=== PATIENT | female | born 1985 | race Caucasian/White ===

== ENCOUNTER 2016-07-01 23:50 | Emergency (ER) | payer SELFPAY ==
[~2016-07-01] VITALS: Ht 162.6 cm; Wt 77.1 kg
[~2016-07-01 23:50] MED LIST: AMOXICILLIN 8751 TAB PO; CEFTIN 250250 MG/TAB PO; LEVAQUIN 750MG750 M1 PO; LODINE300 MG PO; LORTAB 5/500 501 TAB PO; MACRODANTIN50 MG PO; MIRENA52 MG IU; MOTRIN 600600 MG/TAB PO; NORCO 325 MG-51 TAB PO; OMNICEF 300MG300 MG PO; ORTHO TRI-CYCLE1 TAB PO; PEPCID 20MG TAB20 MG PO; PERCOCET 325 MG1 TA2 PO; PHENERGAN 25 TA25 MG PO; PHENERGAN25 MG RC; PREDNISONE20 MG PO; PRENATAL VITAMI1 TA5 PO; PRENATAL1 TA3 PO; PROAIR HFA0.09 MG/AC IH; SENOKOT8.6 MG PO; TUSS PO; TYLENOL 500MG500 MG PO; ZOFRAN 4MG T4 MG/TAB PO; ZOFRAN ODT4 MG PO; ZOLOFT 50MG50 MG PO; [UNRECOGNIZED DRUG - OTHER]
[2016-07-01 23:54] VITALS: TEMP 97.9
[2016-07-02] MEDS ORDERED: FLEXERIL 1010 MG/TAB PO (01:45)
[2016-07-02 02:20] VITALS: BP 116/50; PULSE 90
== END 2016-07-02 02:21 | disposition home or self-care (01) ==
LOC: COL.ER 23:50
DX: M54.32 Sciatica, left side (principal)
CPT/HCPCS: J1885

== ENCOUNTER 2017-08-18 13:57 | Emergency (ER) | payer SELFPAY ==
[~2017-08-18] VITALS: Ht 162.6 cm; Wt 86.1 kg
[~2017-08-18 13:57] MED LIST changes: +FLEXERIL 1010 MG/TAB PO
[2017-08-18 14:02] VITALS: BP 108/65; TEMP 99.3
[2017-08-18] MEDS ORDERED: NORCO 325 MG-51 TAB PO (15:54)
[2017-08-18] MEDS ORDERED: FLEXERIL 1010 MG/TAB PO (15:54)
[2017-08-18 15:59] VITALS: PULSE 101
== END 2017-08-18 16:00 | disposition home or self-care (01) ==
LOC: COL.ER 13:57
DX: M54.5 Low back pain (principal); M51.36 Other intervertebral disc degeneration, lumbar region; F17.210 Nicotine dependence, cigarettes, uncomplicated; Z87.59 Personal history of other complications of pregnancy, childbirth and the puerperium; Z88.1 Allergy status to other antibiotic agents; Z90.49 Acquired absence of other specified parts of digestive tract; Z98.890 Other specified postprocedural states; X50.0XXA Overexertion from strenuous movement or load, initial encounter
CPT/HCPCS: J1885; J2360

== ENCOUNTER 2017-11-01 08:43 | Emergency (ER) | payer SELFPAY ==
[~2017-11-01] VITALS: Ht 160 cm; Wt 86.4 kg
[2017-11-01 09:19] LABS: BASO % 0.4 % (0.0-2.0); EOS # 0.3 (0.0-0.7); EOS % 2.9 % (0-4.0); GRAN # 6.1 (1.4-6.5); GRAN % 62.4 % (42.2-75.2); HEMOGLOBIN 14.1 g/dl (12.5-16.0); LYMPH # 2.5 (1.2-3.4); LYMPH % 25.5 % (20.0-51.0); MEAN CELL VOLUME 89 fl (80.0-100.0); MEAN CORPUSCULAR HEMOGLOBIN 30 pg (27.0-31.0); MEAN CORPUSCULAR HGB CONC 34 g/dl (33.0-37.0); MEAN PLATELET VOLUME 10.1 fl (7.4-10.4); MONO # 0.8 (0.1-0.6); MONO % 8.5 % (1.7-9.3); PLATELET COUNT 263 K/mm3 (130-400); RED BLOOD COUNT 4.71 M/mm3 (4.10-5.30); REDCELL DISTRIBUTION WIDTH-CV 12.5 % (11.5-14.5)
[2017-11-01 09:22] LABS: ALANINE AMINOTRANSFERASE 22 U/L (9-52); ALBUMIN 4.2 gm/dL (3.5-5.0); ALKALINE PHOSPHATASE 70 U/L (50-136); ANION GAP 13 mmol/L (7-16); AST,SGOT 20 U/L (15-37); BILIRUBIN,TOTAL 0.4 mg/dL (0.0-1.0); BLOOD UREA NITROGEN 12 mg/dL (7-17); CALCIUM 8.9 mg/dL (8.4-10.2); CARBON DIOXIDE 21 mmol/L (22-30); CHLORIDE 107 mmol/L (98-107); CREATININE, serum 0.81 mg/dL (0.52-1.25); GLUCOSE 125 mg/dL (74-106); POTASSIUM 3.2 mmol/L (3.4-5.0); SODIUM 142 mmol/L (137-145); TOTAL PROTEIN 7.5 gm/dL (6.4-8.2)
[2017-11-01 09:23] LABS: COLLECTION METHOD CLEAN CATCH
[2017-11-01 09:39] LABS: MUCOUS Present /lpf; URINE BACTERIA Moderate /hpf; URINE RBC >50 /hpf
[2017-11-01 09:39] LABS: HCG,QUANTITATIVE < 2 mIU/mL (0-5)
[2017-11-01 09:41] LABS: PH 5 (5-8); URINE APPEARANCE Cloudy; URINE BILIRUBIN Negative (NEGATIVE); URINE BLOOD 3+ (NEGATIVE); URINE COLOR Amber; URINE GLUCOSE Negative (NEGATIVE); URINE KETONE Trace (NEGATIVE); URINE LEUKOCYTE ESTERASE 1+ (NEGATIVE); URINE NITRATE Positive (NEGATIVE); URINE PROTEIN(semi-quant) 3+ (NEGATIVE); URINE UROBILINOGEN >=4.0 mg/dL (NEGATIVE)
[2017-11-01] MEDS ORDERED: SEPTRA DS 8001 TAB PO (10:17)
[2017-11-01 11:06] VITALS: BP 107/62; PULSE 71
[2017-11-03] MEDS ORDERED: MACROBID 1100 MG/CAP PO (13:14)
== END 2017-11-01 11:06 | disposition home or self-care (01) ==
LOC: COL.ER 08:43
PROVIDERS: Emergency Medicine
DX: O23.41 Unspecified infection of urinary tract in pregnancy, first trimester (principal); O46.91 Antepartum hemorrhage, unspecified, first trimester; Z3A.13 13 weeks gestation of pregnancy; Z90.49 Acquired absence of other specified parts of digestive tract; Z88.1 Allergy status to other antibiotic agents

== ENCOUNTER 2018-01-20 06:22 | Emergency (ER) | payer SELFPAY ==
[~2018-01-20] VITALS: Ht 162.6 cm; Wt 90.9 kg
[~2018-01-20 06:22] MED LIST changes: +MACROBID 1100 MG/CAP PO; +SEPTRA DS 8001 TAB PO
[2018-01-20 06:33] VITALS: TEMP 98.2
[2018-01-20 08:47] VITALS: BP 106/32; PULSE 77
== END 2018-01-20 08:48 | disposition home or self-care (01) ==
LOC: COL.ER 06:22
DX: F41.9 Anxiety disorder, unspecified (principal); R06.00 Dyspnea, unspecified; Z90.49 Acquired absence of other specified parts of digestive tract
CPT/HCPCS: J1630; J2060

== ENCOUNTER 2018-01-23 09:34 | Emergency (ER) | payer SELFPAY ==
[~2018-01-23] VITALS: Ht 162.6 cm; Wt 94.1 kg
[2018-01-23 09:37] VITALS: TEMP 97.5
[2018-01-23] MEDS ORDERED: VISTARIL50 MG PO (10:27)
[2018-01-23 11:04] VITALS: BP 105/62; PULSE 67
== END 2018-01-23 11:05 | disposition home or self-care (01) ==
LOC: COL.ER 09:34
DX: F41.1 Generalized anxiety disorder (principal); F41.0 Panic disorder [episodic paroxysmal anxiety]; F32.9 Major depressive disorder, single episode, unspecified; F17.210 Nicotine dependence, cigarettes, uncomplicated

== ENCOUNTER 2018-09-12 07:48 | Emergency (ER) | payer MEDICAID ==
[~2018-09-12] VITALS: Ht 162.6 cm; Wt 102.7 kg
[~2018-09-12 07:48] MED LIST changes: +VISTARIL50 MG PO
[2018-09-12 07:55] VITALS: BP 128/57; TEMP 97.8
[2018-09-12] MEDS ORDERED: CONCEPT DHA1 CAP PO (07:58)
[2018-09-12] MEDS ORDERED: LIDODERM 5% PATC1 EA TP (08:42)
[2018-09-12] MEDS ORDERED: FLEXERIL 1010 MG/TAB PO (08:42)
[2018-09-12 09:17] VITALS: PULSE 90
== END 2018-09-12 09:18 | disposition home or self-care (01) ==
LOC: COL.ER 07:48
DX: O9A.212 Injury, poisoning and certain other consequences of external causes complicating pregnancy, second trimester (principal); O99.351 Diseases of the nervous system complicating pregnancy, first trimester; O99.332 Smoking (tobacco) complicating pregnancy, second trimester; S39.012A Strain of muscle, fascia and tendon of lower back, initial encounter; O99.342 Other mental disorders complicating pregnancy, second trimester; M54.42 Lumbago with sciatica, left side; F41.9 Anxiety disorder, unspecified; G43.909 Migraine, unspecified, not intractable, without status migrainosus; F17.210 Nicotine dependence, cigarettes, uncomplicated; Z3A.18 18 weeks gestation of pregnancy; Z90.49 Acquired absence of other specified parts of digestive tract; Z98.890 Other specified postprocedural states; X58.XXXA Exposure to other specified factors, initial encounter

== ENCOUNTER → 2018-10-01 | Outpatient (CLI) | payer MEDICAID ==
[~2018-10-01] MED LIST changes: +AMOXICILLIN 50500 MG PO; +CEFTIN500 MG PO; +CONCEPT DHA1 CAP PO; +LIDODERM 5% PATC1 EA TP
== END ==
LOC: ZCOL.LAB 16:12
DX: N39.0 Urinary tract infection, site not specified (principal)

== ENCOUNTER 2018-10-02 05:34 | Emergency (ER) | payer MEDICAID ==
[~2018-10-02] VITALS: Ht 162.6 cm; Wt 103.2 kg
[~2018-10-02 05:34] MED LIST changes: -AMOXICILLIN 50500 MG PO; -CEFTIN500 MG PO
[2018-10-02 05:40] VITALS: BP 119/57
[2018-10-02] MEDS ORDERED: AMOXICILLIN 50500 MG PO ×2 (06:48)
[2018-10-02] MEDS ORDERED: CEFTIN500 MG PO (06:54)
[2018-10-02 07:05] VITALS: PULSE 86; TEMP 98.9
== END 2018-10-02 07:05 | disposition home or self-care (01) ==
LOC: COL.ER 05:34
DX: O23.92 Unspecified genitourinary tract infection in pregnancy, second trimester (principal); O99.332 Smoking (tobacco) complicating pregnancy, second trimester; O99.512 Diseases of the respiratory system complicating pregnancy, second trimester; F17.210 Nicotine dependence, cigarettes, uncomplicated; J20.9 Acute bronchitis, unspecified; Z3A.18 18 weeks gestation of pregnancy
CPT/HCPCS: J8540

== ENCOUNTER 2018-10-06 13:58 | Emergency (ER) | payer MEDICAID ==
[~2018-10-06] VITALS: Ht 162.6 cm; Wt 103.2 kg
[~2018-10-06 13:58] MED LIST changes: +AMOXICILLIN 50500 MG PO; +CEFTIN500 MG PO
[2018-10-06 14:21] VITALS: BP 128/65; PULSE 106; TEMP 99.8
[2018-10-06] MEDS ORDERED: PROAIR HFA0.09 MG/AC IH (21:45)
[2018-10-06] MEDS ORDERED: PRENATAL FORMU1 EAC3 PO (21:46)
[2018-10-07] MEDS ORDERED: NEB MC (00:47)
[2018-10-07] MEDS ORDERED: ALBUTEROL0.83 MG/ML IH (00:47)
== END 2018-10-06 17:54 | disposition left against medical advice (07) ==
LOC: COL.ER 13:58
DX: J44.1 Chronic obstructive pulmonary disease with (acute) exacerbation (principal); F17.210 Nicotine dependence, cigarettes, uncomplicated; Z90.49 Acquired absence of other specified parts of digestive tract; Z98.890 Other specified postprocedural states

== ENCOUNTER 2018-10-06 21:30 | Emergency (ER) | payer MEDICAID ==
[~2018-10-06] VITALS: Ht 162.6 cm; Wt 103.2 kg
[2018-10-06 21:35] VITALS: BP 137/63; TEMP 97.7
[2018-10-06] MEDS ORDERED: PROAIR HFA0.09 MG/AC IH (21:45)
[2018-10-06] MEDS ORDERED: PRENATAL FORMU1 EAC3 PO (21:46)
[2018-10-06 22:28] LABS: BASO # 0.1 (0.0-0.2); BASO % 0.3 % (0.0-2.0); EOS # 0.1 (0.0-0.7); EOS % 0.9 % (0-4.0); GRAN # 11.1 (1.4-6.5); GRAN % 76.1 % (42.2-75.2); HEMOGLOBIN 11.5 g/dl (12.5-16.0); LYMPH # 2.2 (1.2-3.4); LYMPH % 14.8 % (20.0-51.0); MEAN CELL VOLUME 89 fl (80.0-100.0); MEAN CORPUSCULAR HEMOGLOBIN 31 pg (27.0-31.0); MEAN CORPUSCULAR HGB CONC 34 g/dl (33.0-37.0); MEAN PLATELET VOLUME 10.6 fl (7.4-10.4); MONO # 1.1 (0.1-0.6); MONO % 7.2 % (1.7-9.3); PLATELET COUNT 227 K/mm3 (130-400); RED BLOOD COUNT 3.74 M/mm3 (4.10-5.30)
[2018-10-06 22:29] LABS: HEMATOCRIT 33.4 % (37.0-47.0)
[2018-10-06 22:39] LABS: STREP SCREEN NEGATIVE
[2018-10-06 22:50] LABS: ALBUMIN 3.4 gm/dL (3.5-5.0); BILIRUBIN,TOTAL 0.3 mg/dL (0.0-1.0); CALCIUM 8.9 mg/dL (8.4-10.2); CREATININE, serum 0.47 (0.52-1.25); POTASSIUM 3.4 mmol/L (3.4-5.0); TOTAL PROTEIN 6.7 gm/dL (6.4-8.2)
[2018-10-06 23:05] LABS: MONOSCREEN NEGATIVE
[2018-10-07] MEDS ORDERED: ALBUTEROL0.83 MG/ML IH (00:47)
[2018-10-07] MEDS ORDERED: NEB MC (00:47)
[2018-10-07 01:31] VITALS: PULSE 96
[2018-10-07 02:51] LABS: COLLECTION METHOD CLEAN CATCH
[2018-10-07 03:15] LABS: MUCOUS Present /lpf; PH 6 (5-8); URINE APPEARANCE Hazy; URINE BACTERIA None Seen /hpf; URINE BILIRUBIN Negative (NEGATIVE); URINE BLOOD 1+ (NEGATIVE); URINE CALCIUM OXALATE CRYSTAL Present /hpf; URINE COLOR Yellow; URINE GLUCOSE Negative (NEGATIVE); URINE KETONE Negative (NEGATIVE); URINE LEUKOCYTE ESTERASE Negative (NEGATIVE); URINE NITRATE Negative (NEGATIVE); URINE PROTEIN(semi-quant) Negative (NEGATIVE); URINE UROBILINOGEN Negative (NEGATIVE)
== END 2018-10-07 01:31 | disposition home or self-care (01) ==
LOC: COL.ER 21:30
PROVIDERS: Physician Assistant
DX: O99.512 Diseases of the respiratory system complicating pregnancy, second trimester (principal); J44.1 Chronic obstructive pulmonary disease with (acute) exacerbation; Z3A.20 20 weeks gestation of pregnancy
CPT/HCPCS: J1100

== ENCOUNTER 2018-12-11 10:15 | Emergency (ER) | payer MEDICAID ==
[~2018-12-11] VITALS: Ht 162.6 cm; Wt 103.6 kg
[~2018-12-11 10:15] MED LIST changes: +ALBUTEROL0.83 MG/ML IH; +NEB MC; +PRENATAL FORMU1 EAC3 PO
[2018-12-11 10:21] VITALS: BP 127/65; TEMP 98.3
[2018-12-11 11:14] VITALS: PULSE 85
== END 2018-12-11 11:15 | disposition home or self-care (01) ==
LOC: COL.ER 10:15
DX: O9A.213 Injury, poisoning and certain other consequences of external causes complicating pregnancy, third trimester (principal); S61.112A Laceration without foreign body of left thumb with damage to nail, initial encounter; Z3A.29 29 weeks gestation of pregnancy; W26.0XXA Contact with knife, initial encounter; Y99.0 Civilian activity done for income or pay

== ENCOUNTER 2019-02-10 02:55 | Outpatient (CLI) | payer MEDICAID ==
[~2019-02-10] VITALS: Ht 162.6 cm; Wt 109.1 kg
[2019-02-10 03:00] VITALS: BP 127/86; PULSE 94; TEMP 98.1
--- NOTE | 2019-02-10 03:00 | NUR ---
Ambulatory to unit for labor check, accompanied by spouse. Pt reports contractions since 99. Oriented to room, monitor, plan of care.
[2019-02-10 03:24] VITALS: TEMP 98.9
[2019-02-10] MEDS ORDERED: TYLENOL 500MG500 MG PO (03:47)
[2019-02-10 04:00] VITALS: BP 132/80; PULSE 82
--- NOTE | 2019-02-10 04:00 | NUR ---
Repeat SVE with no changes noted, pt reports contractions getting stronger, will monitor and re-evaluate.
[2019-02-10 04:35] VITALS: BP 123/79; PULSE 96
--- NOTE | 2019-02-10 04:40 | NUR ---
Repeat SVE with no changes noted. Discharge instructions reviewed with pt and spouse.
== END 2019-02-10 05:00 | disposition home or self-care (01) ==
LOC: LDRO 02:55
DX: O62.9 Abnormality of forces of labor, unspecified (principal); Z3A.38 38 weeks gestation of pregnancy

== ENCOUNTER 2019-02-11 05:16 | Inpatient (IN) | payer MEDICAID ==
[2019-02-11] VITALS (23 sets, daily range): BP systolic 86–139; BP diastolic 34–87; PULSE 67–89; TEMP 97.7–99
[~2019-02-11] VITALS: Ht 162.6 cm; Wt 109.1 kg
--- NOTE | 2019-02-11 05:20 | NUR ---
Ambulatory to unit for assessment of contractions, accompanied by spouse. Oriented to room, monitor, plan of care. Pt reports have continued "mostly all day", "contractions woke me up about 2:30 and they're getting stronger."
--- NOTE | 2019-02-11 06:20 | NUR ---
Report from Blanca Garrido RN and care of patient assumed. RN at bedside to introduce self and review plan of care for LR bolus and lab work. Plan for SVE recheck at [address] Olivas with results. Patient tenses with contractions. 0630- IV started in RW, labs obtained and LR infusing. Labs sent. patient denies need at this time.
[2019-02-11 06:45] LABS: COLLECTION METHOD CLEAN CATCH
[2019-02-11 06:52] LABS: BASO % 0.3 % (0.0-2.0); EOS # 0.2 (0.0-0.7); GRAN # 11.9 (1.4-6.5); GRAN % 76.5 % (42.2-75.2); HEMOGLOBIN 12.5 g/dl (12.5-16.0); LYMPH # 1.9 (1.2-3.4); LYMPH % 12.1 % (20.0-51.0); MEAN CELL VOLUME 89 fl (80.0-100.0); MEAN CORPUSCULAR HEMOGLOBIN 31 pg (27.0-31.0); MEAN CORPUSCULAR HGB CONC 35 g/dl (33.0-37.0); MEAN PLATELET VOLUME 11.4 fl (7.4-10.4); MONO # 1.5 (0.1-0.6); MONO % 9.5 % (1.7-9.3); PLATELET COUNT 204 K/mm3 (130-400); RED BLOOD COUNT 4.09 M/mm3 (4.10-5.30); REDCELL DISTRIBUTION WIDTH-CV 14.4 % (11.5-14.5)
--- NOTE | 2019-02-11 07:00 | NUR ---
SVE 1-/. Patient states contractions have worsened since her arrival. Breathing through contractions but resting in between. See physician notification. Patient updated on plan of care, agrees and denies questions or need. Eduardo Mojica [employer] E[employer] OPERATOR notified and updated on plan of care.
[2019-02-11 07:02] LABS: ALBUMIN 3.5 gm/dL (3.5-5.0); BILIRUBIN,TOTAL 0.3 mg/dL (0.0-1.0); CALCIUM 8.8 mg/dL (8.4-10.2); CREATININE, serum 0.41 (0.52-1.25); HEMATOCRIT 36.2 % (37.0-47.0); MUCOUS Present /lpf; PH 6 (5-8); POTASSIUM 3.7 mmol/L (3.4-5.0); SQUAMOUS EPITHELIAL 0-2 /hpf; URINE APPEARANCE Clear; URINE BACTERIA Rare /hpf; URINE BILIRUBIN Negative (NEGATIVE); URINE BLOOD 1+ (NEGATIVE); URINE COLOR Yellow; URINE GLUCOSE Negative (NEGATIVE); URINE KETONE Negative (NEGATIVE); URINE LEUKOCYTE ESTERASE Trace (NEGATIVE); URINE NITRATE Negative (NEGATIVE); URINE PROTEIN(semi-quant) Negative (NEGATIVE); URINE RBC 0-2 /hpf; URINE UROBILINOGEN Negative (NEGATIVE)
[2019-02-11 07:08] LABS: TRICYCLIC ANTIDEPRESS URINE NEGATIVE
--- NOTE | 2019-02-11 07:45 | NUR ---
Orders per Dr. Olivas to admit patient and prep for section. Patient updated on plan of care. Consents explained and signed. Denies question. Preop shave and prep completed.
--- NOTE | 2019-02-11 08:10 | NUR ---
Dr. Olivas on unit, reviews strip and updated on patient assessment.
--- NOTE | 2019-02-11 13:43 | NUR ---
LADY ariza responded to a foster care social worker referral for the patient due to past drug usage. The patient's nurse reports the patient is appropriate with the baby. The patient's UDS was negative and the patient's last drug usage was 08/25/17. Patient had a negative UDS 07/28/18 and before delivery. There was no UDS on the patient's baby due to patient's negative UDS. The patient's baby blood cord was sent out for testing. 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 LADY ariza addressed depression. The patient reports she has had mild depression in the past and can recoginze her signs and knows where to go for help, if needed. There will be no CPS report filed unless babies cord comes back positive. LADY ariza collaborated the above information with the patient's nurse.
[2019-02-12 00:01] VITALS: BP 111/46; PULSE 85; TEMP 97.8
[2019-02-12 04:00] VITALS: BP 110/52; PULSE 80; TEMP 98
[2019-02-12] MEDS ORDERED: MOTRIN 800800 MG/TAB PO (07:27)
[2019-02-12] MEDS ORDERED: PERCOCET 325 MG1 TA2 PO (07:27)
[2019-02-12 07:30] VITALS: BP 111/63; PULSE 72; TEMP 98.1
--- NOTE | 2019-02-12 10:10 | NUR ---
Initial visit; Parents thanked for offering congratulations for the of their son. thanked family for choosing [facility].
[2019-02-12 15:30] VITALS: BP 127/56; PULSE 94
[2019-02-12 20:00] VITALS: BP 117/62; PULSE 93; TEMP 98
[2019-02-13 07:00] VITALS: BP 124/68; PULSE 76; TEMP 98.1
== END 2019-02-13 10:53 | disposition home or self-care (01) | DRG 788 ==
LOC: LDRO 05:16 → LDR 05:42 → LDRO 07:55 → OB 07:56 → LDR 07:56 → OB 10:05
PROVIDERS: Obstetrics & Gynecology; ADMIT Obstetrics & Gynecology
PROC: 10D00Z1 Extraction of Products of Conception, Low, Open Approach (ICD-10-PCS; principal; 2019-02-11)
DX: O34.211 Maternal care for low transverse scar from previous cesarean delivery (principal); Z3A.38 38 weeks gestation of pregnancy; Z37.0 Single live birth; Z90.49 Acquired absence of other specified parts of digestive tract; O99.62 Diseases of the digestive system complicating childbirth; K21.9 Gastro-esophageal reflux disease without esophagitis; O99.52 Diseases of the respiratory system complicating childbirth; J45.909 Unspecified asthma, uncomplicated; Z87.891 Personal history of nicotine dependence
CPT/HCPCS: J0690; J1885; J2270; J2405; J2590; J7120